=== PATIENT | female | born 1960 | race Caucasian/White ===

== ENCOUNTER → 2021-04-22 | Outpatient (CLI) | payer MEDICARE, OTHER ==
[~2021-04-22] VITALS: Ht 154.9 cm; Wt 68.1 kg
[~2021-04-22] MED LIST: ASPIRIN 81M81 MG/TA2 PO; ASPIRIN E.C. 8181 MG PO; COZAAR 25MG25 MG/TAB PO; CRESTOR40 MG PO; CYMBALTA 30MG30 MG PO; DOXYCYCLINE 10100 MG PO; IMDUR 30MG30 MG/TAB PO; LOPRESSOR 550 MG/TAB PO; MORPHINE 1515 MG/TAB PO; MSIR30 MG PO; NEXIUM 40MG40 MG PO; NITROLINGU0.4 MG/ACT SL; NORCO 325 MG-51 TAB PO; NORVASC 10MG10 MG PO; ORAMORPH SR60 MG; OXYCONTIN 10MG10 MG PO; PLAVIX 75MG TAB75 MG PO; PRAVACHOL 40MG40 MG PO; PREMARIN 0.60.625 M1 PO; PROAIR HFA0.09 MG/AC IH; RT ADVAIR 128 DISKUS IH; RT ADVAIR 528 DISKUS IH; RT SPIRIVA18 MCG IH; SPIRIVA RE2.5 MCG/Ac IH; TOPROL XL100 MG PO; VOLTAREN 75 DR75 MG PO; XOPENEX HF0.045 MG/A IH; ZOLOFT 100MG100 MG PO
[2021-04-22 07:22] VITALS: BP 182/79; PULSE 59; TEMP 98.2
--- NOTE | 2021-04-22 08:11 | NUR ---
PROCEDURE CANCELLED BY DR WANG.
== END ==
LOC: COL.RAD 06:52
DX: R93.89 Abnormal findings on diagnostic imaging of other specified body structures (principal)

== ENCOUNTER 2022-02-03 09:26 | Day surgery (SDC) | payer MEDICARE, OTHER ==
[~2022-02-03] VITALS: Ht 152.4 cm; Wt 79.4 kg
[2022-02-03] MEDS ORDERED: PROTONIX 40MG T40 MG PO (10:12)
[2022-02-03 11:05] VITALS: BP 129/72; PULSE 80; TEMP 98.1
--- NOTE | 2022-02-03 11:05 | NUR ---
PT TO BAY 5 PER CART FROM ENDO ROOM. VS OBTAINED. PT 86% ON RA. PT STATES SHE DOESN'T USE OXYGEN UNLESS AT HOME. CALL LIGHT WITHIN REACH. PT DENIES ANY ADDITIONAL NEEDS AT THIS TIME.
[2022-02-03 11:20] VITALS: BP 110/66; PULSE 75
--- NOTE | 2022-02-03 11:20 | NUR ---
PT TOLERATING COFFEE AND MUFFIN. PT DENIES ANY ADDITIONAL NEEDS AT THIS TIME.
[2022-02-03 11:35] VITALS: BP 119/65; PULSE 72
--- NOTE | 2022-02-03 11:35 | NUR ---
PT STATES SHE IS READY FOR DC. DR HAAS AWARE OF PT'S O2 SATS. SHE IS OK WITH PT BEING DC'D.
--- NOTE | 2022-02-03 11:45 | NUR ---
IV DC'D. PT TOLERATED WELL.
--- NOTE | 2022-02-03 11:50 | NUR ---
DISCHARGE EDUCATION COMPLETED WITH PT AND HER BROTHER. THEY VERBALIZED UNDERSTANDING OF HOME AND FOLLOW UP CARE. ALL QUESTIONS ANSWERED. DISCHARGE PAPERWORK GIVEN TO PT.
--- NOTE | 2022-02-03 12:00 | NUR ---
PT OFF UNIT PER WHEELCHAIR. PT DISCHARGE TO HOME WITH BROTHER PER PERSONAL VEHICLE.
[2022-02-03 12:55] VITALS: BP 152/71; PULSE 78; TEMP 97.7
== END 2022-02-03 12:00 | disposition home or self-care (01) ==
LOC: SDCO 09:26
DX: K29.50 Unspecified chronic gastritis without bleeding (principal); I25.10 Atherosclerotic heart disease of native coronary artery without angina pectoris; J44.9 Chronic obstructive pulmonary disease, unspecified; Z95.1 Presence of aortocoronary bypass graft; Z79.82 Long term (current) use of aspirin; Z79.01 Long term (current) use of anticoagulants
CPT/HCPCS: J2704; J7030

== ENCOUNTER → 2022-02-19 | Outpatient (CLI) | payer MEDICARE, OTHER ==
[~2022-02-19] MED LIST changes: +PROTONIX 40MG T40 MG PO
== END ==
LOC: COL.RAD 07:36
DX: R11.10 Vomiting, unspecified (principal); R13.10 Dysphagia, unspecified
CPT/HCPCS: A9541

== ENCOUNTER → 2024-05-28 | Outpatient (CLI) | payer MEDICARE, OTHER ==
[~2024-05-28] MED LIST changes: +ALBUTEROL SULFAT3 M3 IH; +Albuterol 0.083% Neb Soln 2.5 MG/3 ML UD IH ONE; +BREO IH; +EXCEDRIN1 TAB PO; +IMDUR 60MG60 MG/TAB PO; +LYRICA 50MG CAP50 MG PO; +NORCO 325 MG-7.1 TAB PO; +REGLAN 10MG10 MG/TAB PO; +ROBAXIN 50500 MG/TAB PO; +SINGULAIR 110 MG/TAB PO; +VOLTAREN GEL 1%1 TU TP; +WELLBUTRIN XL150 MG PO
[2024-05-28 15:10] LABS: ARTERIAL BLD GAS TCO2 CT 35.9; ARTERIAL BLOOD GAS PCO2 59.8 mmHg (35-45); ARTERIAL BLOOD GAS PO2 57.5 mmHg (80-100); ARTERIAL BLOOD GAS pH 7.37 (7.35-7.45)
== END ==
LOC: COL.CARD 14:06
PROVIDERS: Internal Medicine Pulmonary Disease
DX: J44.89 Other specified chronic obstructive pulmonary disease (principal)